=== PATIENT | male | born 1995 | race Caucasian/White ===

== ENCOUNTER 2016-06-23 09:50 | Emergency (ER) | payer OTHER ==
[~2016-06-23] VITALS: Ht 198.1 cm; Wt 133.0 kg
[2016-06-23 09:52] VITALS: TEMP 36.6; Ht 198.1 cm; Wt 133.0 kg
--- NOTE | 2016-06-23 10:38 | DIAGNOSTIC IMAGING REPORT ---
RIGHT ANKLE MIN 3 VIEWS ROUTINE CLINICAL HISTORY: Right ankle pain following fall. COMPARISON: None FINDINGS: Alignment of the right ankle is anatomic. Talar dome is intact. There is no acute fracture. There is mild lateral soft tissue swelling. IMPRESSION: No acute fracture or dislocation of the right ankle. Electronically signed by: Jeramie Egan M.D. 06/23/2016 10:36 AM Dictated Date/Time: 06/23/2016 10:36 AM
[2016-06-23 10:54] VITALS: BP 131/78; PULSE 107; O2SAT 98
--- NOTE | 2016-06-23 16:26 | EMERGENCY ROOM VISIT NOTE ---
ED Visit Note First contact with patient: 10:09 CHIEF COMPLAINT: Right ankle pain . HISTORY OF PRESENT ILLNESS: Mr. Kay is a 20-year old male who ambulates into the ED complaining of right ankle pain. He reports approximately 12 hours ago he was walking down a flight of stairs and slipped and fell on the last 2 steps and injured his ankle. From his description of the injury it appears to be an inversion injury. He reports since the fall he has been having pain over the medial and lateral aspect of the ankle. He is currently complaining of constant deep achy and throbbing pain over the ligamentous structures surrounding the medial and lateral malleolus. He rates the pain a 6/10. Pain is nonradiating. Pain increases with weightbearing/walking , inversion and plantar flexion. He has had mild relief with ice use. Additionally he reports he has been using rest and elevation to relieve his discomfort. He has not taken any medications for his pain prior to arrival at the hospital. He denies any associated hip pain, knee pain, lower leg pain, leg /foot weakness/numbness/tingling. Additionally he denies any previous significant injuries or surgeries to the ankle/foot. REVIEW OF SYSTEMS: As noted above in History of Present Illness. PAST MEDICAL HISTORY: Vertebral stress fractures. CURRENT MEDICATIONS: Patient denies. ALLERGIES TO MEDICATIONS: Patient denies. SOCIAL HISTORY: Patient is currently University student; he feels safe in his home environment; he denies tobacco use and admits to alcohol use. PHYSICAL EXAM: Vital Signs: Date Time Temp Pulse Resp B/P Pulse Ox O2 Delivery O2 Flow Rate FiO2 06/23/16 10:54 107 18 131/78 98 06/23/16 09:52 36.6 123 18 121/67 95 Room Air General: 20 year old male in mild distress due to pain, nontoxic-appearing, afebrile and hemodynamically stable. Neurological: Awake, alert, oriented to person place and time. Answering questions appropriately and following commands. Skin: Warm dry and pink. No soft tissue injuries. Right Lower Extremity: No gross josef deformities. No tenderness in the hip or knee. Tenderness over the ligamentous structures anterior and inferior to the lateral malleolus and the ligamentous structures anterior to the medial malleolus. There is moderate swelling over the lateral malleolus but not the medial malleolus. I do not appreciate any ecchymosis. On ligamentous testing there is no acute instability of the medial or lateral ligamentous structures. No tenderness throughout the foot. Throughout the foot the skin is pink and warm with brisk capillary refill. Able to distinguish light sensations through all dermatomes of the foot. ED COURSE: Patient is assessed as noted above. Ankle X-Rays: Was reviewed by myself and shows no acute fractures or subluxations. Patient is given ice for pain, swelling and comfort; patient was offered pain medications and refused.. Patient is placed in a gel splint and is instructed on crutch use. Patient is educated about his condition and instructed on his treatment plan; he verbalizes understanding and agreement with the our plan. CLINICAL IMPRESSION: Right ankle sprain. DISPOSITION: Patient is discharged to home in stable condition; prior to departure he was reassessed and subjectively reported he was feeling the same and rated his discomfort 7/10. PLAN: Comfort measures were discussed with the patient. Patient was encouraged to follow-up with an orthopedic physician if no better in 7 to 10 days. Patient was encouraged to return ED for worsening/uncontrolled pain, worsening swelling, foot weakness/numbness/tingling or any new/concerning symptoms.
== END 2016-06-23 11:00 | disposition home or self-care (01) ==
LOC: C.EDB 09:52 → C.EDA 11:00
DX: S93.401A Sprain of unspecified ligament of right ankle, initial encounter (principal); W10.9XXA Fall (on) (from) unspecified stairs and steps, initial encounter; Z87.312 Personal history of (healed) stress fracture